=== PATIENT | male | born 1965 | race Two or more races ===

== ENCOUNTER 2017-09-29 19:44 | Emergency (ER) | payer OTHER ==
[2017-09-29] MEDS ORDERED: MECLIZINE HCL 25 MG TABLET PO ONE (20:17)
--- NOTE | 2017-09-29 20:19 | ER Document Report ---
ED Medical Screen (RME) - General Chief Complaint: High Blood Pressure Stated Complaint: HEAD PAIN Time Seen by Provider: 09/29/17 20:12 Notes: 51-year-old [place] male comes emergency room complaining of onset yesterday of dizziness which has been worse and lasting all day today. He notices when he stands up he gets quite dizzy and feels like he will pass out. He has noted his blood pressure was a little elevated today. Past history is significant for coronary artery disease with myocardial infarction and stent 9 years ago. He is on medication for blood pressure cholesterol and has been on Plavix for 9 years now. He has a chronic right upper eyelid drop which has been progressive over the last few years. Brief exam shows lateral gaze nystagmus. He will be given a dose of Antivert at this time and evaluated in the main emergency department. The history is obtained through translators who are reasonably proficient with [place]ic and his [place] language. I have greeted and performed a rapid initial assessment of this patient. A comprehensive ED assessment and evaluation of the patient, analysis of test results and completion of the medical decision making process will be conducted by additional ED providers. Physical Exam - Vital signs Vitals: Temp Pulse Resp BP Pulse Ox 98.6 F 92 18 166/91 H 94 09/29/17 19:52 09/29/17 19:52 09/29/17 19:52 09/29/17 19:52 09/29/17 19:52 Course - Vital Signs Vital signs: Temp Pulse Resp BP Pulse Ox 98.6 F 92 18 166/91 H 94 09/29/17 19:52 09/29/17 19:52 09/29/17 19:52 09/29/17 19:52 09/29/17 19:52
[2017-09-29] MEDS ORDERED: NORMAL SALINE 1000 ML 1,000 ML IV ONE (22:00)
[2017-09-29 22:12] LABS: ABSOLUTE EOSINOPHILS # (AUTO) 0.4 10^3/uL (0.0-0.6); ABSOLUTE LYMPHOCYTES (AUTO) 3.2 10^3/uL (0.5-4.7); ABSOLUTE MONOCYTES (AUTO) 0.7 10^3/uL (0.1-1.4); ABSOLUTE NEUT (AUTO) 3.6 10^3/uL (1.7-8.2); BASOPHILS % (AUTO) 0.6 % (0-2); EOSINOPHILS % (AUTO) 5.3 % (0-6); HEMATOCRIT 40.8 % (37.9-51.0); HEMOGLOBIN 14.5 g/dL (13.5-17.0); HGB HCT DIFFERENCE 2.7; LYMPHOCYTES % (AUTO) 40.1 % (13-45); MEAN CORPUSCULAR HEMOGLOBIN 32.2 pg (27.0-33.4); MEAN CORPUSCULAR HGB CONC 35.5 g/dL (32.0-36.0); MEAN CORPUSCULAR VOLUME 91 fl (80-97); MONOCYTES % (AUTO) 8.5 % (3-13); RED CELL DISTRIBUTION WIDTH 12.1 % (11.5-14.0); SEGMENTED NEUTROPHILS % (AUTO) 45.5 % (42-78); WHITE BLOOD COUNT 7.9 10^3/uL (4.0-10.5)
[2017-09-29 22:27] LABS: ANION GAP 10 (5-19); BLOOD UREA NITROGEN 14 mg/dL (7-20); CALCIUM 9.4 mg/dL (8.4-10.2); CARBON DIOXIDE 28 mmol/L (22-30); CHLORIDE 103 mmol/L (98-107); CREATININE RESULT 0.59 mg/dL (0.52-1.25); GLUCOSE 156 mg/dL (75-110); SODIUM 141.1 mmol/L (137-145)
--- NOTE | 2017-09-29 23:19 | ER Document Report ---
ED General - General Chief Complaint: High Blood Pressure Stated Complaint: HEAD PAIN Time Seen by Provider: 09/29/17 20:12 Notes: Patient is a 51-year-old male with a past medical history of coronary artery disease, essential hypertension, who presents with intermittent vertigo and a sensation of lightheadedness that is been present since he woke up this morning. States the episodes of dizziness come on and last for approximately 1- 2 minutes and spontaneously resolve. He denies any history of similar episodes in the past. Nothing improves or worsens his symptoms. He does know however since coming here to the emergency department and receiving medications and fluids he feels much better and no longer is having any symptoms. He denies any headache, neck pain, fever, or altered mental status. No focal weakness or numbness. No difficulty with ambulation. He has not seen his primary care doctor regarding today's concerns. TRAVEL OUTSIDE OF THE [place] IN LAST 30 DAYS: No Past Medical History - General Information source: Patient - Social History Smoking Status: Never Smoker Chew tobacco use (# tins/day): Yes Frequency of alcohol use: None Drug Abuse: None Lives with: Family Family History: Reviewed & Not Pertinent Patient has suicidal ideation: No Patient has homicidal ideation: No - Past Medical History Cardiac Medical History: Reports: Hx Heart Attack, Hx Hypertension Renal/ Medical History: Denies: Hx Peritoneal Dialysis Past Surgical History: Reports: Hx Cardiac CatheterizationComment Only: Hx Cardiac Surgery - stent x 9 years ago Review of Systems - Review of Systems Notes: Constitutional: Negative for fever. HENT: Negative for sore throat. Eyes: Negative for visual changes. Cardiovascular: Negative for chest pain. Respiratory: Negative for shortness of breath. Gastrointestinal: Negative for abdominal pain, vomiting or diarrhea. Genitourinary: Negative for dysuria. Musculoskeletal: Negative for back pain. Skin: Negative for rash. Neurological: Negative for headaches, weakness or numbness. Positive for vertigo 10 point ROS negative except as marked above and in HPI. Physical Exam - Vital signs Vitals: Temp Pulse Resp BP Pulse Ox 98.6 F 92 18 166/91 H 94 09/29/17 19:52 09/29/17 19:52 09/29/17 19:52 09/29/17 19:52 09/29/17 19:52 Interpretation: Hypertensive Notes: PHYSICAL EXAMINATION: GENERAL: Well-appearing, well-nourished and in no acute distress. HEAD: Atraumatic, normocephalic. EYES: Pupils equal round and reactive to light, extraocular movements intact, sclera anicteric, conjunctiva are normal. ENT: nares patent, oropharynx clear without exudates. Moist mucous membranes. NECK: Normal range of motion, supple without lymphadenopathy LUNGS: Breath sounds clear to auscultation bilaterally and equal. No wheezes rales or rhonchi. HEART: Regular rate and rhythm without murmurs ABDOMEN: Soft, nontender, normoactive bowel sounds. No guarding, no rebound. No masses appreciated. EXTREMITIES: Normal range of motion, no pitting or edema. No cyanosis. NEUROLOGICAL: Face symmetric. Tongue protrudes midline. Extraocular motions intact. Pupils are 2 mm and equally reactive. Normal speech, normal gait. 5 out of 5 strength in both the distal and proximal upper and lower extremities bilaterally. Sensation is grossly intact throughout. Finger to nose testing normal. Pronator drift normal.. PSYCH: Normal mood, normal affect. SKIN: Warm, Dry, normal turgor, no rashes or lesions noted. Course - Re-evaluation Re-evalutation: 09/29/17 23:18 Presentation of vertigo that appears most consistent with a benign peripheral vertigo. Patient has no abnormal findings on exam. Normal cerebellar testing, steady even gait. Able to walk on heels and toes. Normal proprioception. Patient is not an elevated risk for a cerebellar infarction given age, absence of significant risk factors. Patient did have improvement of symptoms here in the emergency department with meclizine. Suspect likely acute vestibular neuritis. I do not believe neurologic imaging is indicated at this time based on physical examination and clinical history. Labs unremarkable. Patient will be discharged with recommendations to return should their symptoms worsen or they develop new concerning symptoms. - Vital Signs Vital signs: Temp Pulse Resp BP Pulse Ox 98.6 F 70 18 122/76 98 09/29/17 19:52 09/29/17 23:32 09/29/17 23:32 09/29/17 23:32 09/29/17 23:32 - Laboratory Result Diagrams: 09/29/17 22:00 09/29/17 22:00 Laboratory results interpreted by me: 09/29/17 22:00 Glucose 156 H Discharge - Discharge Clinical Impression: Vertigo, Essential hypertension Condition: Good Disposition: HOME, SELF-CARE Additional Instructions: You were seen today for lightheadedness/dizziness. The exact cause of your symptoms is unclear but your workup here is reassuring without any concerning findings. Please follow closely with your primary care physician in the next 1- 3 days. Return if you pass out, have additional episodes of lightheadedness, develop weakness/numbness, have persistent vomiting, chest pain, shortness of breath or any other symptoms that are concerning to you Prescriptions: Meclizine HCl 25 mg PO Q6HP PRN #30 tablet PRN Reason:
[2017-09-29 23:33] VITALS: BP 122/76
== END 2017-09-29 23:32 | disposition home or self-care (01) ==
LOC: ER 19:44
DX: I10 Essential (primary) hypertension (principal); R42 Dizziness and giddiness; I25.10 Atherosclerotic heart disease of native coronary artery without angina pectoris; I25.2 Old myocardial infarction; Z95.5 Presence of coronary angioplasty implant and graft
CPT/HCPCS: 99284; 96372; 96360; 36415; 85025; 80048; 84484; J7030